=== PATIENT | male | born 1965 | race Caucasian/White ===

== ENCOUNTER 2023-04-10 00:04 | Emergency (ER) | payer BC ==
[~2023-04-10] VITALS: Ht 167.6 cm; Wt 63.0 kg
[2023-04-10 00:18] VITALS: BP_SYST 161
--- NOTE | 2023-04-10 00:18 | NUR ---
Patient triaged and placed in ER bed 5. Bed placed in lowest position and side rails up. Report given to [facility] RN for continuity of care. Instructed patient to notify ED staff for any changes in condition or worsening of symptoms while waiting to be seen by a provider. Patient verbalized understanding.
[2023-04-10] MEDS ORDERED: LABETALOL HCL 20 MG/4 ML CARTRIDGE IVP ONE (00:30)
[2023-04-10] MEDS ORDERED: NACL 0.9% 1,000 ML IV ONE (00:30)
--- NOTE | 2023-04-10 00:31 | NUR ---
Dr. ROONEY at bedside examining the patient.
--- NOTE | 2023-04-10 00:41 | NUR ---
Portable x-ray done at bedside.
[2023-04-10 00:47] LABS: BASOPHILS # (AUTO) 0.1 K/uL (0.0-0.2); BASOPHILS % (AUTO) 0.7 % (0.0-2.0); EOSINOPHILS # (AUTO) 0.2 K/uL (0.0-0.4); EOSINOPHILS % (AUTO) 2.9 % (0.0-4.0); HEMATOCRIT 43.9 % (36-54); HEMOGLOBIN 15.4 g/dL (14.0-18.0); LYMPHOCYTES # (AUTO) 1.5 K/uL (1.0-5.5); LYMPHOCYTES % (AUTO) 19.7 % (20.5-51.5); MEAN CORPUSCULAR HEMOGLOBIN 31 pg (27-31); MEAN CORPUSCULAR HGB CONC 35 % (32-36); MEAN CORPUSCULAR VOLUME 87 fL (79.0-98.0); MONOCYTES # (AUTO) 0.7 K/uL (0.0-1.0); MONOCYTES % (AUTO) 8.8 % (1.7-9.3); NEUTROPHILS # (AUTO) 5.3 K/uL (1.8-7.7); NEUTROPHILS % (AUTO) 67.9 % (40.0-70.0); PLATELET COUNT (AUTO) 181 K/uL (130-430); RED BLOOD CELL COUNT(AUTO) 5.03 MIL/uL (4.2-6.2); RED CELL DISTRIBUTION WIDTH 13.4 % (9.0-15.0); WHITE BLOOD COUNT (AUTO) 7.7 K/uL (4.8-10.8)
--- NOTE | 2023-04-10 00:56 | NUR ---
Dr. Camp at bedside for evaluation.
[2023-04-10 01:00] LABS: ANION GAP 5 (5-15); CALCIUM 8.7 mg/dL (8.4-11.0); CHLORIDE 101 mmol/L (98-107); GFR AFRICAN AMERICAN 98 mL/min (>90); GLUCOSE 108 mg/dL (70-99); UREA NITROGEN, BLOOD 18 mg/dL (8-21)
--- NOTE | 2023-04-10 01:05 | NUR ---
SL 20 gauge placed to RAC followed with IVF NS 1000 ml bolus; also, Labetolol 10 mg IVP.
[2023-04-10 01:07] LABS: ALANINE AMINOTRANSFERASE 63 U/L (12-78); ALBUMIN 4.1 g/dL (3.4-4.8); ASPARTATE AMINOTRANSFERASE 50 U/L (10-37); TOTAL BILIRUBIN 0.4 mg/dL (0.0-1.0)
[2023-04-10 03:26] VITALS: BP_SYST 138
--- NOTE | 2023-04-10 03:32 | NUR ---
Patient given written and verbal discharge instructions and verbalizes understanding. ER DR ROONEY discussed with patient the results and treatment provided. Patient in stable condition. ID arm band removed. IV catheter removed intact and dressing applied, no active bleeding. NO Rx given. Patient educated on pain management and to follow up with PMD. Pain Scale 0/10. Opportunity for questions provided and answered. Medication side effect fact sheet provided.
== END 2023-04-10 03:32 | disposition home or self-care (01) ==
LOC: SED 00:04
DX: I10 Essential (primary) hypertension (principal); R42 Dizziness and giddiness; Z91.041 Radiographic dye allergy status; Z88.2 Allergy status to sulfonamides; Z79.899 Other long term (current) drug therapy
CPT/HCPCS: 99284; 96374; 71045; 96361; 80053; 85025; 84484; 36415; J7030